=== PATIENT | male | born 1960 | race Caucasian/White ===

== ENCOUNTER 2018-03-01 07:25 | Outpatient (CLI) | payer MEDICARE ==
[2018-03-01] MEDS ORDERED: Gadobenate Dimeglumine 529 MG/1 ML (20ML VIAL) ONE (13:20)
== END 2018-03-01 07:26 | disposition home or self-care (01) ==
LOC: BICMRI 07:25
PROVIDERS: ATTEND Nurse Practitioner Family
DX: M54.16 Radiculopathy, lumbar region (principal); M99.83 Other biomechanical lesions of lumbar region; M99.84 Other biomechanical lesions of sacral region
CPT/HCPCS: 72158; A9579

== ENCOUNTER 2019-09-14 01:50 | Emergency (ER) | payer MEDICARE ==
[2019-09-14] MEDS ORDERED: Lidocaine Viscous Sol 2% 15 ml UD Cup ONE (02:03)
[2019-09-14] MEDS ORDERED: Mag-Al 1200 mg/1200 mg/30 ML UDCUP ONE (02:03)
[2019-09-14 02:19] LABS: #Basophils 0.1 thou/uL (0.0-0.2); #Eosinphils 0.3 thou/uL (0.0-0.7); #Lymphocytes 2.6 thou/uL (1.20-3.40); #Monocytes 0.6 thou/uL (0.11-0.59); #Neutrophils 9.5 thou/uL (1.40-6.50); %Basophils 0.4 % (0.0-1.0); %Eosinophils 2.4 % (0.0-10.0); %Lymphocytes 19.8 % (21.0-51.0); %Monocytes 4.9 % (0.0-10.0); %Neutrophils 72.5 % (42.0-75.0); Hemoglobin 15.5 g/dL (14.0-18.0); Mean Corpuscular Hemoglobin 30.7 pg (27.0-31.0); Mean Corpuscular Volume 90.3 fL (78.0-98.0); Mean Platelet Volume 7.3 fL (7.4-10.4); Platelet Count 262 thou/uL (130-400); RBC Distribution Width 12.4 % (11.5-14.5); Red Blood Cell (RBC) Count 5.05 mill/uL (4.70-6.10); White Blood Cell (WBC) Count 13.1 thou/uL (4.8-10.8)
[2019-09-14 02:41] LABS: ALT (SGPT) 7 U/L (8-55); AST (SGOT) 12 U/L (5-34); Albumin 4.2 g/dL (3.5-5.0); Alkaline Phosphatase 77 U/L (40-110); Anion Gap 11 mmol/L (10-20); BUN (Urea Nitrogen) 13 mg/dL (8.4-25.7); Bilirubin, Total 0.4 mg/dL (0.2-1.2); Calc. Creatinine Clearance 0 mL/min (70-130); Calcium 8.9 mg/dL (7.8-10.44); Carbon Dioxide 29 mmol/L (22-29); Chloride 104 mmol/L (98-107); Estimated GFR-MDRD 90; Globulin 2.3 g/dL (2.4-3.5); Glucose 105 mg/dL (70-105); Lipase 6 U/L (8-78); Potassium 3.3 mmol/L (3.5-5.1); Protein, Total 6.5 g/dL (6.0-8.3); Sodium 141 mmol/L (136-145)
[2019-09-14 05:51] LABS: Troponin I 0.017 ng/mL (< 0.028)
--- NOTE | 2019-09-14 08:41 | RAD ---
RADIOGRAPH CHEST 1 VIEW: DATE: 09/14/2019. TIME: 1:43 a.m. HISTORY: A 58-year-old male with chest pain. FINDINGS: There are no air space densities, pulmonary edema, pneumothorax, or cardiomegaly. The lateral costop hrenic angles are sharp. IMPRESSION: No acute cardiopulmonary findings. jn [] POS: CET
== END 2019-09-14 06:11 | disposition home or self-care (01) ==
LOC: ERS 01:50
DX: R07.2 Precordial pain (principal); F17.210 Nicotine dependence, cigarettes, uncomplicated; I10 Essential (primary) hypertension
CPT/HCPCS: 36415; 71045; 80053; 83690; 84484; 85025; 93005

== ENCOUNTER 2019-11-07 09:38 | Outpatient (CLI) | payer MEDICARE ==
--- NOTE | 2019-11-07 10:12 | RAD ---
EXAM: 3 views of the lumbosacral spine HISTORY: Low back pain; prior fusion COMPARISON: None FINDINGS: The patient is status post fusion of L4-S1 with bilateral pedicle screws. No perihardware l ucency is seen. The vertebral bodies demonstrate normal alignment without fracture or subluxation. Alignment is unchanged with flexion and extension. The sacroiliac joints are unremarkable. Vascular calcifications are seen in the aorta. IMPRESSION: Postoperative changes of the lower lumbar spine with unchanged alignment with bending
== END 2019-11-07 09:39 | disposition home or self-care (01) ==
LOC: RAD 09:38
PROVIDERS: ATTEND Nurse Practitioner Family
DX: M47.816 Spondylosis without myelopathy or radiculopathy, lumbar region (principal); Z98.890 Other specified postprocedural states
CPT/HCPCS: 72100

== ENCOUNTER 2020-04-30 10:24 | Observation (INO) | payer MEDICARE, OTHER ==
--- NOTE | 2020-04-30 10:54 | RAD ---
XR Chest 1 View Portable HISTORY: Chest pain COMPARISON: 09/14/2019 FINDINGS: The heart size is normal. The aorta is tortuous. The lungs are well expanded without focal areas of consolidation, pneumothorax or pleural effusions. IMPRESSION: No radiographic evidence of acute cardiopulmonary process.
[2020-04-30] MEDS ORDERED: Nitroglycerin 0.4 MG TAB 1 EACH ONE (11:07)
[2020-04-30] MEDS ORDERED: Nitroglycerin 2% Ointment 1 INCH/1 GM Packet ONE (11:07)
[2020-04-30 11:09] LABS: #Basophils 0.1 thou/uL (0.0-0.2); #Eosinphils 0.3 thou/uL (0.0-0.7); #Lymphocytes 2.2 thou/uL (1.20-3.40); #Monocytes 0.3 thou/uL (0.11-0.59); #Neutrophils 3.1 thou/uL (1.40-6.50); %Basophils 0.9 % (0.0-1.0); %Eosinophils 5.4 % (0.0-10.0); %Lymphocytes 36.9 % (21.0-51.0); %Monocytes 5.4 % (0.0-10.0); %Neutrophils 51.4 % (42.0-75.0); Hemoglobin 14.7 g/dL (14.0-18.0); Mean Corpuscular HGB CONC 35.7 g/dL (32.0-36.0); Mean Corpuscular Hemoglobin 32.4 pg (27.0-31.0); Mean Corpuscular Volume 90.9 fL (78.0-98.0); Mean Platelet Volume 6.8 fL (7.4-10.4); Platelet Count 245 thou/uL (130-400); RBC Distribution Width 12.9 % (11.5-14.5); Red Blood Cell (RBC) Count 4.55 mill/uL (4.70-6.10)
[2020-04-30 11:32] LABS: ALT (SGPT) 11 U/L (8-55); AST (SGOT) 12 U/L (5-34); Albumin 4.2 g/dL (3.5-5.0); Alkaline Phosphatase 77 U/L (40-110); Anion Gap 13 mmol/L (10-20); BUN (Urea Nitrogen) 10 mg/dL (8.4-25.7); Bilirubin, Total 0.4 mg/dL (0.2-1.2); Calc. Creatinine Clearance 0 mL/min (70-130); Calcium 8.9 mg/dL (7.8-10.44); Carbon Dioxide 26 mmol/L (22-29); Chloride 103 mmol/L (98-107); Estimated GFR-MDRD 82; Globulin 2.4 g/dL (2.4-3.5); Glucose 103 mg/dL (70-105); Potassium 3.8 mmol/L (3.5-5.1); Protein, Total 6.6 g/dL (6.0-8.3); Sodium 138 mmol/L (136-145)
[2020-04-30] MEDS ORDERED: Acetaminophen 325 MG TAB PO PRN (11:48)
[2020-04-30 14:41] VITALS: BMI 22.9
[2020-04-30 15:20] LABS: Troponin I Less than 0.010 ng/mL (< 0.028)
[2020-04-30 17:19] LABS: Troponin I Less than 0.010 ng/mL (< 0.028)
--- NOTE | 2020-04-30 18:59 | HP ---
CHIEF COMPLAINT: Chest pain. HISTORY OF PRESENT ILLNESS: The patient is a 59-year-old male with past medical history of hypertension, who was in his usual state of health until earlier this morning when he experienced central chest pressure while walking. The patient waited for the pain to go away, but the pain persisted, which prompted him to present to the emergency department. In the ER, his vital signs were stable and his initial troponin was slightly elevated at 0.02. EKG did not show any ST elevations. The patient's pain improved with nitroglycerin paste. REVIEW OF SYSTEMS: Negative except as noted in HPI. PAST MEDICAL HISTORY: Hypertension. PAST SURGICAL HISTORY: Unremarkable. ALLERGIES: NO KNOWN ALLERGIES. SOCIAL HISTORY: The patient is a cigarette smoker. He denies alcohol or illicit drug use. PHYSICAL EXAMINATION: GENERAL: He is alert and oriented x3. HEENT: Head is normocephalic and atraumatic. Extraocular muscles are intact. NECK: Supple. CHEST: Auscultation is clear bilaterally. CARDIOVASCULAR: Revealed normal S1 and S2. No murmurs, rubs, or gallops. ABDOMEN: Soft, nontender, and nondistended. NEUROLOGIC: Unremarkable. ASSESSMENT: 1. Chest pain, rule out acute coronary syndrome. 2. Hypertension. PLAN: 1. The patient will be placed in telemetry. Obtain serial troponins. 2. Start aspirin 81 mg orally daily, atorvastatin 40 mg orally nightly, metoprolol tartrate 12.5 mg twice daily, and Imdur 30 mg orally daily. 3. N.p.o. after midnight. 4. Nuclear stress test in the morning if troponins are unremarkable. Job ID: [id number]
[2020-04-30] MEDS: Gabapentin 100 MG CAP PO SCH (20:53)
[2020-04-30] MEDS: Metoprolol Tartrate 25 MG TAB PO SCH (20:54)
[2020-04-30] MEDS: Acetaminophen/Codeine 30-300mg Tablet PO PRN (20:54)
[2020-04-30] MEDS ORDERED: Atorvastatin Calcium 40 MG TAB PO SCH (21:00)
[2020-05-01 05:44] LABS: Hemoglobin A1c 5.2 % (4.0-6.0)
[2020-05-01] MEDS: Acetaminophen/Codeine 30-300mg Tablet PO PRN (05:49)
[2020-05-01 05:58] LABS: Anion Gap 12 mmol/L (10-20); BUN (Urea Nitrogen) 14 mg/dL (8.4-25.7); Calc. Creatinine Clearance 83 mL/min (70-130); Calcium 9.1 mg/dL (7.8-10.44); Carbon Dioxide 28 mmol/L (22-29); Cardiac Risk 5.4 (Less than 4.5); Chloride 104 mmol/L (98-107); Cholesterol 234 mg/dl (< 200 Desired); Estimated GFR-MDRD 77; Glucose 96 mg/dL (70-105); HDL Cholesterol 43 mg/dL (>60 Neg Risk); LDL Cholesterol, Calculated 165 mg/dL; Potassium 4.3 mmol/L (3.5-5.1); Sodium 140 mmol/L (136-145); Triglycerides 132 mg/dL (Less than 150)
[2020-05-01 06:37] LABS: Eosinophils 2 % (0-10); Hemoglobin 13.7 g/dL (14.0-18.0); Hypochromia SLIGHT = 6-15 cells (100X) (0-5/hpf); Lymphocytes 37 % (21-51); MDiff Complete? YES; Mean Corpuscular HGB CONC 33.2 g/dL (32.0-36.0); Mean Corpuscular Hemoglobin 30.1 pg (27.0-31.0); Mean Corpuscular Volume 90.6 fL (78.0-98.0); Monocytes 1 % (0-10); Neutrophil 60 % (42-75); Platelet Count 243 thou/uL (130-400); Platelet Morphology Comment Appears Adequate; RBC Distribution Width 12.9 % (11.5-14.5); Red Blood Cell (RBC) Count 4.54 mill/uL (4.70-6.10); White Blood Cell (WBC) Count 6.6 thou/uL (4.8-10.8)
[2020-05-01] MEDS ORDERED: Amlodipine 10 MG TAB PO SCH (09:00)
[2020-05-01] MEDS ORDERED: Aspirin 81 mg Enteric Coated Tablet PO SCH (09:00)
[2020-05-01] MEDS ORDERED: Enoxaparin Sodium 40 MG/0.4 ML SYRINGE SC SCH (09:00)
--- NOTE | 2020-05-01 11:17 | NM ---
EXAM: CARDIAC SPECT HISTORY: Chest pain, hypertension, smoker TECHNIQUE: A myocardial perfusion scan was performed using the single isotope 1 day protocol with ke hnetium 99m sestamibi. [10 mCi] was injected intravenously for the rest exam followed by 30 mCi for the stress study. Pharmacologic stress with Lexiscan was monitored and interpreted by Dr. Bahena FINDINGS: Homogeneous tracer distribution is seen in the myocardial segments on stress and rest image s without fixed or reversible defects. Gated SPECT LVEF: 61% Wall motion exam: Normal IMPRESSION: Normal myocardial perfusion scan
[2020-05-01 11:31] VITALS: TEMP 98.3
[2020-05-01] MEDS: Gabapentin 100 MG CAP PO SCH (11:32)
[2020-05-01] MEDS: Metoprolol Tartrate 25 MG TAB PO SCH (11:33)
[2020-05-01] MEDS ORDERED: Regadenoson 0.4 MG/5 ML SYRINGE ONE (12:00)
[2020-05-01 12:24] LABS: SARS-CoV-2 MS2 Positive; SARS-CoV-2 N Gene Negative; SARS-CoV-2 S Gene Negative; SARS-CoV-2 by NAA Not Detected (NotDetected); SARS-CoV-2 orf1ab Negative
[2020-05-01 13:11] VITALS: BP 122/75
--- NOTE | 2020-05-02 04:36 | DIS ---
DATE OF ADMISSION: 04/30/2020 DATE OF DISCHARGE: 05/01/2020 DISCHARGE DIAGNOSES: 1. Chest pain, acute coronary syndrome ruled out. 2. Hypertension. DISCHARGE MEDICATIONS: 1. Amlodipine 10 mg orally daily. 2. Gabapentin 100 mg tablet, the patient takes two tablets orally twice daily. 3. Naproxen 250 mg orally twice daily. 4. Protonix 40 mg orally daily. 5. Tylenol No. 4, one tablet orally q.6 hours as needed for pain. HISTORY OF PRESENT ILLNESS AND HOSPITAL COURSE: The patient is a 59-year-old male with past medical history of hypertension, who presented to the hospital with central chest pain. EKG did not show any ST elevations. Serial troponins were unremarkable. The patient was placed in observation and a nuclear pharmacologic stress test was obtained, which did not show any evidence of reversible ischemia. His pain is likely due to musculoskeletal source versus chronic acid reflux. Naproxen and Protonix were prescribed. Outpatient followup with PCP recommended in 1 week. 33 minutes was used in evaluating and discharging this patient. Job ID: [id number]
== END 2020-05-01 13:38 | disposition home or self-care (01) ==
LOC: ERS 10:24 → 2SW 14:36
PROVIDERS: ADMIT Internal Medicine; ATTEND Internal Medicine
DX: R07.89 Other chest pain (principal); I10 Essential (primary) hypertension; F17.210 Nicotine dependence, cigarettes, uncomplicated; Z79.899 Other long term (current) drug therapy; Z20.828 Contact with and (suspected) exposure to other viral communicable diseases
CPT/HCPCS: 71045; 78452; 80048; 80053; 80061; 83036; 83880; 84484 ×2; 85025 ×2; 93005; 93017; 99285; A9500; U0003; 36415; 87635; 96372; G0378; J1650; J2785

== ENCOUNTER 2020-09-07 11:21 | Inpatient (IN) | payer MEDICARE ==
[~2020-09-07 11:21] MED LIST: Iopamidol 370 76% 100 ML VIAL ONE; Iopamidol 370 76% 50 ML VIAL FS ONE
[2020-09-07] MEDS ORDERED: Nitroglycerin 2% Ointment 1 INCH/1 GM Packet ONE (11:37)
[2020-09-07] MEDS ORDERED: Nitroglycerin 0.4 MG TAB 1 EACH ONE (11:38)
--- NOTE | 2020-09-07 11:46 | RAD ---
XR Chest 1 View Portable History: Chest pain Comparison: Radiograph April 2020 Findings: Background lung hyperinflation. No confluent airspace consolidation, pneumothorax or effusi on. No acute osseous abnormality. Impression: No acute intrathoracic abnormality.
[2020-09-07] MEDS ORDERED: Aspirin Chewable 81 MG TAB ONE (11:48)
[2020-09-07 11:53] LABS: #Basophils 0.1 thou/uL (0.0-0.2); #Eosinphils 0.2 thou/uL (0.0-0.7); #Lymphocytes 2.1 thou/uL (1.20-3.40); #Monocytes 0.7 thou/uL (0.11-0.59); %Basophils 0.3 % (0.0-1.0); %Lymphocytes 13.7 % (21.0-51.0); %Monocytes 4.8 % (0.0-10.0); %Neutrophils 80.1 % (42.0-75.0); Hemoglobin 15.1 g/dL (14.0-18.0); Mean Corpuscular HGB CONC 33.7 g/dL (32.0-36.0); Mean Corpuscular Hemoglobin 30.3 pg (27.0-31.0); Mean Corpuscular Volume 89.9 fL (78.0-98.0); Mean Platelet Volume 7.4 fL (7.4-10.4); Platelet Count 272 thou/uL (130-400); RBC Distribution Width 13.6 % (11.5-14.5); Red Blood Cell (RBC) Count 4.99 mill/uL (4.70-6.10)
[2020-09-07 12:05] LABS: Bilirubin Negative (Negative); Blood, Urine Negative (Negative); Clarity Clear (Clear); Glucose, Urine (Dipstick) Normal (Negative); Ketone, Urine Negative (Negative); Leukocyte Negative Leu/uL (Negative); Nitrite Negative (Negative); Protein, Urine (Dipstick) Negative (Neg-Trace); Specific Gravity, Urine 1.005 (1.002-1.036); Urobilinogen Normal mg/dL (Less than 2)
[2020-09-07] MEDS ORDERED: Midazolam HCl 2 mg/2 ml Vial ONE ×2 (12:10→13:44)
[2020-09-07] MEDS ORDERED: Fentanyl 100 MCG/2 ML VIAL ONE ×2 (12:11→15:39)
[2020-09-07 12:14] LABS: ALT (SGPT) 11 U/L (8-55); AST (SGOT) 15 U/L (5-34); Albumin 4.6 g/dL (3.5-5.0); Alkaline Phosphatase 96 U/L (40-110); Anion Gap 18 mmol/L (10-20); BUN (Urea Nitrogen) 12 mg/dL (8.4-25.7); Bilirubin, Total 0.3 mg/dL (0.2-1.2); Calc. Creatinine Clearance 0 mL/min (70-130); Calcium 8.6 mg/dL (7.8-10.44); Carbon Dioxide 29 mmol/L (22-29); Chloride 98 mmol/L (98-107); Globulin 2.7 g/dL (2.4-3.5); Glucose 105 mg/dL (70-105); Protein, Total 7.3 g/dL (6.0-8.3); Sodium 141 mmol/L (136-145)
[2020-09-07 12:14] LABS: PTT 29.8 sec (22.9-36.1); Prothrombin Time 13.3 sec (12.0-14.7)
[2020-09-07] MEDS ORDERED: Heparin 10,000 UNITS/ 10 ML VIAL ONE (12:29)
[2020-09-07 12:38] LABS: CKMB 1.5 ng/mL (0-6.6)
[2020-09-07] MEDS ORDERED: Nitroglycerin 100MG/250ML BOT 250 ML ONE (14:14)
[2020-09-07] MEDS ORDERED: TICAGRELOR 90 MG TABLET ONE (14:59)
[2020-09-07] MEDS ORDERED: traMADol HCl 50 MG TAB PO PRN (15:28)
[2020-09-07] MEDS ORDERED: Milk Of Magnesia 30 ML UDCUP PO PRN (15:28)
[2020-09-07] MEDS ORDERED: Acetaminophen/Codeine 30-300mg Tablet ONE ×2 (15:36→21:48)
[2020-09-07] MEDS: Acetaminophen/Codeine 30-300mg Tablet PO PRN ×2 (15:45→21:51)
[2020-09-07] MEDS ORDERED: Fentanyl 100 MCG/2 ML VIAL SLOW IVP SCH ×3 (16:30→19:15)
[2020-09-07] MEDS ORDERED: Carvedilol 3.125 MG TAB ONE (16:50)
[2020-09-07] MEDS: Carvedilol 3.125 MG TAB PO SCH (17:07)
[2020-09-07 18:05] VITALS: BMI 24.9
--- NOTE | 2020-09-07 18:18 | HP ---
REASON FOR ADMISSION: Acute ST-elevation myocardial infarction. HISTORY OF PRESENT ILLNESS: Mr. David Coyle is a 59-year-old gentleman who has been having chest pain off and on for several months. He was actually evaluated at this institution with stress testing which did not show any ischemic changes. He said he initially has tightness in his chest, but it always goes away, but this time, the pain did not resolve. He came to the emergency room, and he was found to have ST elevation in lead I and aVL with some ST depression in the anterior leads. He is having ongoing chest pain. PAST MEDICAL HISTORY: Hypertension and hypercholesterolemia. MEDICATIONS: He is taking pravastatin, gabapentin, and amlodipine. FAMILY HISTORY: Sibling with a history of coronary artery disease and myocardial infarction. Twin brother had bypass surgery about 5 years ago. They are identical twins. SOCIAL HISTORY: The patient does have a history of smoking. ALLERGIES: NONE. REVIEW OF SYSTEMS: CONSTITUTIONAL: No significant weight gain or loss. VISION: No changes. HEARING: No changes. PULMONARY: No cough or wheezing. CARDIAC: As outlined above. GASTROINTESTINAL: No nausea, vomiting, or diarrhea. SKIN: No rashes. NEUROLOGIC: No unilateral weakness or numbness. PSYCHIATRIC: No unusual depression or anxiety. PHYSICAL EXAMINATION: GENERAL: This is an ill-appearing 59-year-old gentleman with ongoing chest pain. VITAL SIGNS: Blood pressure was 120 to 130 systolic, pulse was in the 80 to 100 range, sinus. NECK: Veins normal. Carotid, normal upstrokes. No bruits. LUNGS: Clear. CARDIAC: Normal S1, normal S2. There is no murmur, rub, or gallop. ABDOMEN: Soft and nontender. No hepatosplenomegaly. EXTREMITIES: Warm, dry. No clubbing or cyanosis. He has no edema. DIAGNOSTIC STUDIES: EKG shows as outlined above, sinus rhythm with ST elevation I and aVL with some ST depression in the anterior leads. ASSESSMENT: 1. Acute myocardial infarction. EKG findings are suggestive of a lateral infarct, possibly related to the circumflex. 2. History of smoking. 3. Strong family history of heart disease, identical twin brother with bypass surgery 5 years ago. 4. History of hypertension. 5. History of hypercholesterolemia. PLAN: Discussed options, the best option is to go straight to the cardiac catheterization lab to see if the patient can be revascularized. Risks, stroke, heart attack, iodine allergy, loss of blood flow to the leg or kidney, stent thrombosis, stent restenosis were all discussed. The patient understands and wishes to proceed. Job ID: [id number]
[2020-09-07] MEDS ORDERED: Sodium Chloride 0.9% 1,000 ML IV SCH (19:00)
[2020-09-07] MEDS: Rosuvastatin 20 MG TAB PO SCH (22:27)
[2020-09-07] MEDS: TICAGRELOR 90 MG TABLET PO SCH (22:27)
[2020-09-08 00:17] LABS: Troponin I 103.966 ng/mL (< 0.028)
[2020-09-08] MEDS ORDERED: Acetaminophen/Codeine 30-300mg Tablet ONE ×2 (00:30→04:25)
[2020-09-08] MEDS: Acetaminophen/Codeine 30-300mg Tablet PO PRN ×2 (00:34→04:30)
[2020-09-08] MEDS ORDERED: traMADol HCl 50 MG TAB ONE (06:24)
[2020-09-08] MEDS: Aspirin Chewable 81 MG TAB PO SCH (08:30)
[2020-09-08] MEDS: Carvedilol 3.125 MG TAB PO SCH ×2 (08:30→17:15)
[2020-09-08] MEDS: TICAGRELOR 90 MG TABLET PO SCH ×2 (08:30→21:03)
[2020-09-08 08:57] LABS: #Eosinphils 0.2 thou/uL (0.0-0.7); #Lymphocytes 1.3 thou/uL (1.20-3.40); #Monocytes 0.4 thou/uL (0.11-0.59); #Neutrophils 6.5 thou/uL (1.40-6.50); %Basophils 0.4 % (0.0-1.0); %Eosinophils 2.2 % (0.0-10.0); %Lymphocytes 15.6 % (21.0-51.0); %Monocytes 4.6 % (0.0-10.0); %Neutrophils 77.3 % (42.0-75.0); Hemoglobin 13.8 g/dL (14.0-18.0); Mean Corpuscular HGB CONC 33.1 g/dL (32.0-36.0); Mean Corpuscular Hemoglobin 30.1 pg (27.0-31.0); Mean Corpuscular Volume 90.7 fL (78.0-98.0); Mean Platelet Volume 7.8 fL (7.4-10.4); Platelet Count 205 thou/uL (130-400); RBC Distribution Width 13.6 % (11.5-14.5); Red Blood Cell (RBC) Count 4.58 mill/uL (4.70-6.10); White Blood Cell (WBC) Count 8.4 thou/uL (4.8-10.8)
[2020-09-08 09:25] LABS: ALT (SGPT) 40 U/L (8-55); AST (SGOT) 172 U/L (5-34); Albumin 3.7 g/dL (3.5-5.0); Alkaline Phosphatase 84 U/L (40-110); Anion Gap 14 mmol/L (10-20); BUN (Urea Nitrogen) 8 mg/dL (8.4-25.7); Bilirubin, Total 0.5 mg/dL (0.2-1.2); Calc. Creatinine Clearance 111 mL/min (70-130); Calcium 8.5 mg/dL (7.8-10.44); Carbon Dioxide 24 mmol/L (22-29); Chloride 104 mmol/L (98-107); Globulin 2.4 g/dL (2.4-3.5); Glucose 118 mg/dL (70-105); Potassium 3.8 mmol/L (3.5-5.1); Protein, Total 6.1 g/dL (6.0-8.3); Sodium 138 mmol/L (136-145)
[2020-09-08] MEDS ORDERED: Fentanyl 100 MCG/2 ML VIAL ONE (09:39)
[2020-09-08] MEDS ORDERED: Acetaminophen/Codeine 30-300mg Tablet PO PRN (09:42)
[2020-09-08] MEDS ORDERED: Communication Order-Pharmacy FS SCH (09:45)
[2020-09-08] MEDS ORDERED: Fentanyl 100 MCG/2 ML VIAL SLOW IVP SCH (09:45)
--- NOTE | 2020-09-08 10:20 | PRG ---
DATE OF SERVICE: 09/08/2020 SUBJECTIVE: Mr. Coyle is doing well. He is having no recurrent chest pain. He has had a lot of back and neck pain, which he has chronically. It is worse that having to be in bed. The patient is not short of breath. Otherwise, he is recovering from his infarction well. OBJECTIVE: VITAL SIGNS: His blood pressure is 110 to 120 systolic, pulse in the low 60s. NECK: Veins are normal. LUNGS: Clear anteriorly and laterally. CARDIAC: Normal S1, normal S2. There is no murmur, rub, or gallop. ABDOMEN: Soft, nontender. EXTREMITIES: Warm, dry. No clubbing, cyanosis, or edema. The left femoral pulses are strong. DIAGNOSTIC STUDIES: EKG reveals T-wave inversion in the anterior leads compatible with recovering myocardium. The creatinine is normal at 0.8 even after the large amount of contrast needed for the procedure. Peak troponin is . ASSESSMENT: 1. Status post myocardial infarction, initially presented with ST elevation in leads I and aVL. 2. Complicated intervention as outlined yesterday, difficult to pass a wire down into his LAD, but ultimately was done successfully and stented as a calcified lesion, therefore even a high-pressure inflation, there was still some residual narrowing with 18 atmospheres with an appropriately size balloon, there is still approximately 20% residual narrowing. 3. Circumflex with a critical stenosis. I think this needs to be done relatively early, especially in view of the initial presentation showing ST elevation in leads I and aVL and critical lesions. We will proceed to cardiac catheterization tomorrow. Discussed risks of stroke, heart attack, iodine allergy, loss of blood flow to leg or kidney, stent thrombosis, stent restenosis. He understands and wishes to proceed. 4. We will treat with a high-intensity statin. He has a history of high cholesterol. He was on low-intensity statin previously. LDL cholesterol in April was 165. We will probably also add Zetia. 5. He is on dual anti-platelet therapy. 6. Beta blockers. 7. Start MICHAEL inhibitors. Job ID: [id number]
[2020-09-08] MEDS ORDERED: HYDROcodone/Acetaminophen 7.5/325 mg Tablet ONE ×4 (10:32→22:12)
[2020-09-08] MEDS: HYDROcodone/Acetaminophen 7.5/325 mg Tablet PO PRN ×4 (10:35→22:38)
[2020-09-08] MEDS: Gabapentin 100 MG CAP PO SCH ×2 (11:32→21:03)
[2020-09-08 12:14] LABS: SARS-CoV-2 NAA Rapid Test Not Detected (NotDetected)
[2020-09-08] MEDS ORDERED: Lisinopril 2.5 MG TAB PO SCH (12:45)
--- NOTE | 2020-09-08 13:35 | EKG ---
Test Reason : S/P CATH Blood Pressure : / mmHG Vent. Rate : 064 BPM Atrial Rate : 064 BPM P-R Int : 172 ms QRS Dur : 084 ms QT Int : 454 ms P-R-T Axes : 046 076 094 degrees QTc Int : 468 ms Normal sinus rhythm Anteroseptal infarct (cited on or before 07-SEP-2020) T wave abnormality, consider lateral ischemia Abnormal ECG Confirmed by JONE NAYLOR ([id number]) on 09/08/2020 1:35:35 PM Referred By: BRO Confirmed By:JONE NAYLOR
[2020-09-08] MEDS: Rosuvastatin 20 MG TAB PO SCH (21:03)
[2020-09-09] MEDS: Sodium Chloride 0.9% 1,000 ML IV SCH ×2 (06:00→16:40)
[2020-09-09] MEDS: Aspirin Chewable 81 MG TAB PO SCH (07:00)
[2020-09-09] MEDS: Carvedilol 3.125 MG TAB PO SCH ×2 (07:00→18:20)
[2020-09-09] MEDS: Lisinopril 2.5 MG TAB PO SCH (07:00)
[2020-09-09] MEDS: TICAGRELOR 90 MG TABLET PO SCH ×2 (07:14→21:33)
[2020-09-09] MEDS: Gabapentin 100 MG CAP PO SCH ×2 (07:15→21:32)
[2020-09-09] MEDS ORDERED: Gabapentin 100 MG CAP PO SCH (09:00)
[2020-09-09] MEDS ORDERED: Fentanyl 100 MCG/2 ML VIAL SLOW IVP PRN (09:27)
[2020-09-09] MEDS ORDERED: Iopamidol 370 76% 100 ML VIAL ONE (09:45)
[2020-09-09] MEDS ORDERED: Iopamidol 370 76% 50 ML VIAL FS ONE (09:45)
--- NOTE | 2020-09-09 11:30 | EKG ---
Test Reason : S/P STENT Blood Pressure : / mmHG Vent. Rate : 057 BPM Atrial Rate : 057 BPM P-R Int : 172 ms QRS Dur : 080 ms QT Int : 492 ms P-R-T Axes : 052 078 109 degrees QTc Int : 478 ms Sinus bradycardia Anteroseptal infarct (cited on or before 07-SEP-2020) Abnormal ECG Confirmed by JONE NAYLOR ([id number]) on 09/09/2020 11:30:05 AM Referred By: BRO Confirmed By:JONE NAYLOR
[2020-09-09] MEDS: HYDROcodone/Acetaminophen 7.5/325 mg Tablet PO PRN ×2 (15:12→21:33)
[2020-09-09] MEDS: Rosuvastatin 20 MG TAB PO SCH (21:33)
[2020-09-10 04:53] LABS: #Eosinphils 0.2 thou/uL (0.0-0.7); #Lymphocytes 1.7 thou/uL (1.20-3.40); #Monocytes 0.4 thou/uL (0.11-0.59); #Neutrophils 4.9 thou/uL (1.40-6.50); %Basophils 0.4 % (0.0-1.0); %Eosinophils 2.3 % (0.0-10.0); %Lymphocytes 24.1 % (21.0-51.0); %Monocytes 5.5 % (0.0-10.0); %Neutrophils 67.7 % (42.0-75.0); Hemoglobin 12.2 g/dL (14.0-18.0); Mean Corpuscular HGB CONC 33.4 g/dL (32.0-36.0); Mean Corpuscular Hemoglobin 29.8 pg (27.0-31.0); Mean Corpuscular Volume 89.5 fL (78.0-98.0); Mean Platelet Volume 7.9 fL (7.4-10.4); Platelet Count 194 thou/uL (130-400); RBC Distribution Width 13.5 % (11.5-14.5); Red Blood Cell (RBC) Count 4.08 mill/uL (4.70-6.10); White Blood Cell (WBC) Count 7.2 thou/uL (4.8-10.8)
[2020-09-10 05:33] LABS: ALT (SGPT) 19 U/L (8-55); AST (SGOT) 34 U/L (5-34); Albumin 3.4 g/dL (3.5-5.0); Alkaline Phosphatase 72 U/L (40-110); Anion Gap 14 mmol/L (10-20); BUN (Urea Nitrogen) 16 mg/dL (8.4-25.7); Bilirubin, Total 0.3 mg/dL (0.2-1.2); Calc. Creatinine Clearance 107 mL/min (70-130); Calcium 8.4 mg/dL (7.8-10.44); Carbon Dioxide 21 mmol/L (22-29); Chloride 106 mmol/L (98-107); Globulin 2.2 g/dL (2.4-3.5); Glucose 84 mg/dL (70-105); Potassium 3.7 mmol/L (3.5-5.1); Protein, Total 5.6 g/dL (6.0-8.3); Sodium 137 mmol/L (136-145)
[2020-09-10 08:45] VITALS: TEMP 98.2
[2020-09-10] MEDS: Carvedilol 3.125 MG TAB PO SCH (08:47)
[2020-09-10] MEDS: Gabapentin 100 MG CAP PO SCH (08:47)
[2020-09-10] MEDS: Lisinopril 2.5 MG TAB PO SCH (08:47)
[2020-09-10] MEDS: TICAGRELOR 90 MG TABLET PO SCH (08:47)
[2020-09-10] MEDS: Aspirin Chewable 81 MG TAB PO SCH (08:47)
[2020-09-10] MEDS: HYDROcodone/Acetaminophen 7.5/325 mg Tablet PO PRN (08:48)
--- NOTE | 2020-09-10 12:46 | DIS ---
DATE OF ADMISSION: 09/07/2020 DATE OF DISCHARGE: 09/10/2020 FINAL DIAGNOSES: 1. Status post acute anterior myocardial infarction. 2. Multivessel coronary artery disease. 3. Hypercholesterolemia. 4. History of hypertension. MEDICINES: At the time of discharge; 1. Aspirin 81 mg a day. 2. Carvedilol 3.125 mg twice a day. 3. Gabapentin 100 mg twice a day as before. 4. Lisinopril 5 mg a day. 5. Protonix 40 mg a day as before. 6. Crestor 40 mg a day. 7. Brilinta 90 mg twice a day. Follow up in our office in one week. Consideration for increasing MICHAEL inhibitor or beta dariel depending on blood pressure and heart rate. HISTORY OF PRESENT ILLNESS: Mr. Coyle is a very pleasant 59-year-old gentleman, who presented with acute anterior myocardial infarction on 09/07/2020. He was taken to the electronic lab technician. He was found to have occlusion of the proximal left anterior descending artery with 90% circumflex lesion and diffuse aneurysmal ectasia with moderate nonobstructive plaque in the right coronary and intervention was done on the LAD proved to be very difficult to get a wire down the LAD, but it was ultimately successfully done. A 3.0 x 20 mm drug-eluting stent was positioned and post dilated to 18 atmospheres. It is a very technically difficult procedure as is outlined in the chart. A lot of contrast was necessary for the procedure. We waited a couple of days and went back and did the circumflex. A 3.0 x 24 mm drug-eluting stent was placed in the circumflex and post dilated to 3.25 mm. Both lesions were somewhat calcified and refractory, but ultimately were opened successfully. The ejection fraction is 50%. The patient is released home at the present time. He understands it is critical not to smoke. We did smoking cessation counseling. I have reviewed the procedures with the patient, gave him information about the devices and stressed the importance of no smoking and taking medicines as prescribed. He will see us in the office in one week. PERTINENT LABORATORY DATA: Hemoglobin is 12.2. COVID negative. Troponin went to 103.966. The liver function tests slightly but then came back to normal, compatible with myocardial injury. The records were reviewed. He did have an LDL cholesterol of 165 back in April. He was already on a statin at that point. We will probably need to add Zetia when he comes back. The patient will be seen in the office, will need followup concerning his lipids. He understands if he has recurrent chest pain, he should call an ambulance. He drove himself to the hospital with this infarction. Job ID: [id number]
[2020-09-10 13:19] VITALS: BP 173/91
[2020-09-11] MEDS ORDERED: Lisinopril 2.5 MG TAB PO SCH (09:00)
[2020-09-11] MEDS ORDERED: Lisinopril 5 MG TAB PO SCH (09:00)
--- NOTE | 2020-09-11 09:23 | EKG ---
Test Reason : Blood Pressure : / mmHG Vent. Rate : 064 BPM Atrial Rate : 064 BPM P-R Int : 184 ms QRS Dur : 086 ms QT Int : 434 ms P-R-T Axes : 038 073 104 degrees QTc Int : 447 ms Normal sinus rhythm Anteroseptal infarct (cited on or before 07-SEP-2020) T wave abnormality, consider lateral ischemia Abnormal ECG Confirmed by JONE NAYLOR ([id number]) on 09/11/2020 9:22:35 AM Referred By: BRO Confirmed By:JONE NAYLOR
--- NOTE | 2020-09-14 19:38 | EKG ---
Test Reason : Blood Pressure : / mmHG Vent. Rate : 074 BPM Atrial Rate : 074 BPM P-R Int : 182 ms QRS Dur : 084 ms QT Int : 402 ms P-R-T Axes : 071 080 083 degrees QTc Int : 446 ms Normal sinus rhythm with sinus arrhythmia Septal infarct , age undetermined T wave abnormality, consider anterior ischemia Abnormal ECG No previous ECGs available Confirmed by JOSE BABIN, PERLA ([id number]) on 09/14/2020 7:38:09 PM Referred By: BRO Confirmed By:PERLA GARCIA MD
--- NOTE | 2020-09-27 19:11 | EKG ---
Test Reason : Blood Pressure : / mmHG Vent. Rate : 088 BPM Atrial Rate : 088 BPM P-R Int : 174 ms QRS Dur : 088 ms QT Int : 370 ms P-R-T Axes : 000 074 148 degrees QTc Int : 447 ms Normal sinus rhythm Low voltage QRS ST elevation MN, ST elevation I, aVL, V1, V2 ST depression III, aVF Abnormal ECG Confirmed by ANDRAE KENYON DO ([id number]), map editor JEFFY VELÁSQUEZ ([id number]) on 09/27/2020 7:10:58 PM Referred By: Confirmed By:ANDRAE KENYON DO
--- NOTE | 2020-10-02 14:28 | CCLSPC ---
PROCEDURES: 1. Left heart catheterization. 2. Coronary stent implantation. INDICATION: Acute myocardial infarction. This is in addition to the procedure note done in the [facility] system. PROCEDURE IN DETAIL: The patient was brought to the cardiac catheterization with ongoing chest pain. Using micropuncture technique, a sheath was placed in the right femoral artery, [id number]. Did require a Wholey wire to navigate into the aorta. This was then changed for a J-wire. Coronary angiography was done with Michelle right 4 catheter and Michelle left 4 catheter. Films were reviewed and revealed the following. 1. Left main: No obstructive stenosis. 2. LAD: 100% occluded proximally. 3. Circumflex: 90% lesion, relatively focal. 4. Right coronary artery: Diffusely aneurysmal segment with 50% plaques in several areas, but no obstructive stenosis. Right dominant vessel, very large vessel. The patient was given additional heparin and an attempt was made to angioplasty and stent the LAD. This proved to be a very difficult situation. A wire was placed in the LAD, tended to go in the very large septal perforating artery. We were able to finally get some flow into the LAD, but it was a very severe plaque followed by a very sharp bend and it was extremely difficult. Multiple wires were ultimately used to try to shape. A wire was placed in the LAD across the plaque into the septal to try to use it as a marker to guide into the LAD itself that was not successful. After multiple wires were tried, finally, with two bands in the wire and a sharp bend at the distal tip of the wire, we were able to again navigate the wire into the LAD. Then, it was balloon dilated with a 2.0 balloon. It was a refractory lesion as would be expected as there was calcium in the area and this was pre-dilated with a 2.5 high-pressure balloon. Subsequently, a 3.0 x 20 stent was positioned and deployed at 12 atmospheres, but it was clearly underexpanded in the area of the plaque as would be expected with a calcified lesion. Therefore, a 3.0 x 15 balloon was positioned carefully and inflated to 18 atmospheres. This expanded the stent better. There was still some residual narrowing, but really nothing further to be done at this time. There was flow in the septal perforating artery, but there was some pinching in the first septal perforating artery. Still severe narrowing in the circumflex, but it took a lot of contrast in order to accomplish this procedure. Therefore, this procedure was terminated at this point with plans on bringing him back in for stenting of the circumflex. The patient's bladder was very distended at the procedure end. He was able to urinate twice here a total of 1100 mL after the procedure. He is doing better now. CONCLUSION: 1. Three-vessel disease as outlined above. 2. Successful stent implantation in the LAD. 3. We will need to come back for stenting in the circumflex distribution. Job ID: [id number]
== END 2020-09-10 11:16 | disposition home or self-care (01) | DRG 247 ==
LOC: ERS 11:21 → CCL 12:01 → CCU 15:24 → 2NO 09-09 13:44
PROVIDERS: ADMIT Internal Medicine Cardiovascular Disease; ATTEND Internal Medicine Cardiovascular Disease
PROC: 027034Z Dilation of Coronary Artery, One Artery with Drug-eluting Intraluminal Device, Percutaneous Approach (ICD-10-PCS; principal; 2020-09-07)
PROC: B2111ZZ Fluoroscopy of Multiple Coronary Arteries using Low Osmolar Contrast (ICD-10-PCS; 2020-09-07)
PROC: B2151ZZ Fluoroscopy of Left Heart using Low Osmolar Contrast (ICD-10-PCS; 2020-09-07)
PROC: 4A023N7 Measurement of Cardiac Sampling and Pressure, Left Heart, Percutaneous Approach (ICD-10-PCS; 2020-09-07)
DX: I21.09 ST elevation (STEMI) myocardial infarction involving other coronary artery of anterior wall (principal); I10 Essential (primary) hypertension; E78.00 Pure hypercholesterolemia, unspecified; Z79.899 Other long term (current) drug therapy; F17.210 Nicotine dependence, cigarettes, uncomplicated; Z20.822 Contact with and (suspected) exposure to COVID-19
CPT/HCPCS: 0240U; 36415; 71045; 76942; 80053; 81003; 82553; 84484; 85025; 85347; 85610; 85730; 86850; 86900; 86901; 92928; 93005; 93010; 93454; 93458; 93567; 93798; 94760; 96374; 97139; 99152; 99153; C1874; C9600; J1644; J2250; J3010; Q9967

== ENCOUNTER 2021-07-07 06:52 | Day surgery (SDC) | payer MEDICARE ==
[2021-07-06 10:08] VITALS: BMI 23.1
[2021-07-07] MEDS ORDERED: Lorazepam 1 MG TAB ONE (07:29)
[2021-07-07 08:00] VITALS: BP 162/95; TEMP 98.2
[2021-07-07] MEDS ORDERED: Iopamidol-M 200 41% 20 ML VIAL ONE (11:47)
== END 2021-07-07 09:55 | disposition home or self-care (01) ==
LOC: RAD 06:52
PROVIDERS: ATTEND Nurse Practitioner Family
PROC: B02B1ZZ Computerized Tomography (CT Scan) of Spinal Cord using Low Osmolar Contrast (ICD-10-PCS; principal; 2021-07-07)
DX: M47.26 Other spondylosis with radiculopathy, lumbar region (principal); M47.22 Other spondylosis with radiculopathy, cervical region; M47.817 Spondylosis without myelopathy or radiculopathy, lumbosacral region; K44.9 Diaphragmatic hernia without obstruction or gangrene; I70.0 Atherosclerosis of aorta; G89.29 Other chronic pain; M54.2 Cervicalgia; M96.1 Postlaminectomy syndrome, not elsewhere classified; I10 Essential (primary) hypertension; Z87.891 Personal history of nicotine dependence; Z79.02 Long term (current) use of antithrombotics/antiplatelets; Z79.82 Long term (current) use of aspirin; Z79.899 Other long term (current) drug therapy; Z88.5 Allergy status to narcotic agent; Z98.1 Arthrodesis status
CPT/HCPCS: 62304; 72132; Q9966

== ENCOUNTER 2022-08-24 07:54 | Outpatient (CLI) | payer MEDICARE | END 2022-08-24 07:55 | disposition home or self-care (01) | LOC: BICCT 07:54 | PROVIDERS: ATTEND Nurse Practitioner Family | DX: M96.1 Postlaminectomy syndrome, not elsewhere classified (principal); M47.816 Spondylosis without myelopathy or radiculopathy, lumbar region; M47.817 Spondylosis without myelopathy or radiculopathy, lumbosacral region; M51.36 Other intervertebral disc degeneration, lumbar region; Z98.1 Arthrodesis status | CPT/HCPCS: 72131 ==

== ENCOUNTER 2023-08-03 14:06 | Outpatient (CLI) | payer MEDICARE ==
[2023-08-03 14:48] LABS: Hematocrit 43.3 % (38.8-50.0); Hemoglobin 15.1 g/dL (13.5-17.5); Mean Corpuscular HGB CONC 34.9 g/dL (32.0-36.0); Mean Corpuscular Hemoglobin 31.6 pg (27.0-33.0); Mean Corpuscular Volume 90.6 fl (81.2-95.1); Mean Platelet Volume 10.1 fl (7.4-10.4); Platelet Count 198 10x3/uL (150-450); RBC Distribution Width 12.4 % (11.5-14.5); Red Blood Cell (RBC) Count 4.78 10x6/uL (4.32-5.72); White Blood Cell (WBC) Count 6.5 10x3/uL (3.5-10.5)
[2023-08-03 15:03] LABS: Anion Gap 15 mmol/L (10-20); BUN (Urea Nitrogen) 11 mg/dL (8.4-25.7); Calc. Creatinine Clearance 0 mL/min (70-130); Carbon Dioxide 26 mmol/L (23-31); Chloride 105 mmol/L (98-107); Potassium 4.1 mmol/L (3.5-5.1); Sodium 142 mmol/L (136-145)
[2023-08-03 15:04] LABS: Estimated GFR 97; Glucose 94 mg/dL (80-115); PTT 30.5 sec (22.0-33.0)
== END 2023-08-03 14:07 | disposition home or self-care (01) ==
LOC: LABBT 14:06
PROVIDERS: ATTEND Neurological Surgery
DX: Z01.818 Encounter for other preprocedural examination (principal); M48.062 Spinal stenosis, lumbar region with neurogenic claudication; M54.16 Radiculopathy, lumbar region
CPT/HCPCS: 80048; 85027; 85610; 85730; 93005; 93010

== ENCOUNTER 2023-08-04 07:54 | Observation (INO) | payer MEDICARE ==
[2023-08-03 14:25] VITALS: BMI 22.3
[2023-08-04] MEDS ORDERED: Lidocaine 1% PF 5 ML VIAL ONE ×2 (09:45→10:45)
[2023-08-04] MEDS ORDERED: PROPOFOL 20 ML ONE (09:45)
[2023-08-04] MEDS ORDERED: Rocuronium Bromide 10 MG/ML (10ML VIAL) ONE ×2 (09:45→10:45)
[2023-08-04] MEDS ORDERED: Fentanyl 250 MCG/5 ML VIAL ONE ×2 (09:46→13:24)
[2023-08-04] MEDS ORDERED: Bupivacaine PF 0.5% 30 ML VIAL ONE (10:30)
[2023-08-04] MEDS ORDERED: Thrombin 5000 UNITS/5 ML VIAL ONE (10:30)
[2023-08-04] MEDS ORDERED: EPINEPHrine 1 MG/ML VIAL ONE (10:30)
[2023-08-04] MEDS ORDERED: Vancomycin 1 GM VIAL ONE (10:30)
[2023-08-04] MEDS ORDERED: Sodium Chloride 0.9% 100 ML ONE (10:36)
[2023-08-04] MEDS ORDERED: CEFAZOLIN 2 GM VIAL ONE (10:36)
[2023-08-04] MEDS ORDERED: PHENYLEPHRINE-NS 100 MCG/ML 10 ML SYRINGE ONE ×2 (10:45→11:39)
[2023-08-04] MEDS ORDERED: Glycopyrrolate 0.2 MG/ML 5 ML SYRINGE ONE ×2 (10:45→12:24)
[2023-08-04] MEDS ORDERED: Dexamethasone 20 MG/5 ML VIAL ONE ×2 (10:45→11:13)
[2023-08-04] MEDS ORDERED: Ondansetron PF 4 MG/2 ML Vial ONE ×2 (10:45→11:13)
[2023-08-04] MEDS ORDERED: NEOSTIGMINE 3 MG/3 ML SYR 3 MG/3 ML SYRINGE ONE ×2 (10:45→12:24)
[2023-08-04] MEDS ORDERED: PROPOFOL 200 MG/20 ML VIAL ONE (10:45)
[2023-08-04] MEDS ORDERED: ePHEDrine Sulfate 50 MG/10 ML VIAL ONE ×2 (10:45→11:51)
[2023-08-04] MEDS ORDERED: Ketorolac Tromethamine 30 MG (1 mL) VIAL ONE ×2 (10:45→12:12)
[2023-08-04] MEDS ORDERED: Morphine Sulfate 2 MG/ML SYRINGE SLOW IVP PRN (12:18)
[2023-08-04] MEDS ORDERED: Ondansetron HCl/PF 4 MG/2 ML Vial IVP PRN (12:18)
[2023-08-04] MEDS ORDERED: Promethazine HCl 25 MG/ML VIAL IM PRN (12:18)
[2023-08-04] MEDS ORDERED: HYDROmorphone 2 MG/ML VIAL SLOW IVP PRN (12:18)
[2023-08-04] MEDS ORDERED: PACU-Morphine 4MG/ML VIAL SLOW IVP PRN (12:18)
[2023-08-04] MEDS ORDERED: diphenhydrAMINE 25 MG CAP PO PRN (13:00)
[2023-08-04] MEDS ORDERED: Ondansetron PF 4 MG/2 ML Vial IVP PRN (13:00)
[2023-08-04] MEDS ORDERED: Milk Of Magnesia 30 ML UDCUP PO PRN (13:00)
[2023-08-04] MEDS ORDERED: Acetaminophen 325 MG TAB PO PRN (13:00)
[2023-08-04] MEDS ORDERED: Acetaminophen/Codeine 30-300mg Tablet PO PRN (13:00)
[2023-08-04] MEDS ORDERED: hydrALAZINE 20 MG/ML VIAL SLOW IVP PRN (13:02)
[2023-08-04] MEDS ORDERED: tiZANidine HCl 4 MG TAB PO PRN (13:02)
[2023-08-04] MEDS ORDERED: Diazepam 5 MG TAB ONE (13:46)
[2023-08-04] MEDS: Sodium Chloride 0.9% 1,000 ML IV SCH (15:40)
[2023-08-04] MEDS: Morphine 2 MG/ML VIAL SLOW IVP PRN ×2 (17:20→23:30)
[2023-08-04] MEDS: CEFAZOLIN 2 GM in Sodium Chloride 0.9% 100 ML IVPB SCH (17:21)
[2023-08-04] MEDS: Docusate 100 MG CAP PO SCH (20:23)
[2023-08-04] MEDS: Gabapentin 300 MG CAP PO SCH (20:24)
[2023-08-04] MEDS: HYDROcodone/Acetaminophen 7.5/325 mg Tablet PO PRN (20:25)
[2023-08-05] MEDS: CEFAZOLIN 2 GM in Sodium Chloride 0.9% 100 ML IVPB SCH (02:06)
[2023-08-05] MEDS: Sodium Chloride 0.9% 1,000 ML IV SCH (02:06)
[2023-08-05] MEDS: HYDROcodone/Acetaminophen 7.5/325 mg Tablet PO PRN (04:08)
[2023-08-05 08:13] VITALS: BP 118/75; TEMP 98.3
[2023-08-05] MEDS: Gabapentin 300 MG CAP PO SCH (08:33)
[2023-08-05] MEDS: Docusate 100 MG CAP PO SCH (08:35)
[2023-08-05] MEDS ORDERED: Ezetimibe 10 MG TAB PO SCH (09:00)
[2023-08-05] MEDS ORDERED: Rosuvastatin 20 MG TAB PO SCH (09:00)
[2023-08-05] MEDS ORDERED: Lisinopril 20 MG TAB PO SCH (09:00)
[2023-08-05] MEDS ORDERED: Cholecalciferol 1,000 UNITS (25 MCG) TAB PO SCH (09:00)
[2023-08-05] MEDS ORDERED: Cyanocobalamin (Vitamin B-12) 1,000 MCG TAB PO SCH (09:00)
[2023-08-05] MEDS ORDERED: Magnesium Oxide 250 MG TAB PO SCH (09:00)
== END 2023-08-05 10:44 | disposition home or self-care (01) ==
LOC: SDC 07:54 → T4-A 13:00
PROVIDERS: ADMIT Neurological Surgery; ATTEND Neurological Surgery
PROC: 01NB0ZZ Release Lumbar Nerve, Open Approach (ICD-10-PCS; principal; 2023-08-04)
DX: M48.061 Spinal stenosis, lumbar region without neurogenic claudication (principal); M54.16 Radiculopathy, lumbar region; Z88.5 Allergy status to narcotic agent
CPT/HCPCS: 63030; 63047; J0171; J1100; J1885; J2272; J2405; J2704; J3010; J3370; J3490; J7050; S0020